=== PATIENT | male | born 1985 | race Caucasian/White ===

== ENCOUNTER → 2020-12-04 | Outpatient (CLI) | payer OTHER | LOC: M LABSMTC 12:10 | PROVIDERS: ATTEND Anesthesiology | DX: Z01.812 Encounter for preprocedural laboratory examination (principal); Z20.822 Contact with and (suspected) exposure to COVID-19 ==

== ENCOUNTER 2020-12-09 08:29 | Day surgery (SDC) | payer OTHER, SELFPAY ==
[~2020-12-09] VITALS: Ht 190.5 cm; Wt 92.4 kg
[~2020-12-09 08:29] MED LIST: LIDOCAINE 1% MDV 20ML VIAL SQ PRN; LR 1,000 ML IV ONE; ceFAZolin SOD 2 GM in IV 1 EA IV ONE
--- OUTSIDE RECORDS SUMMARY | 2020-12-09 08:50 | CCD ---
Author Author [facility] Organization [facility] Address Unknown Phone Unavailable Care Team Providers Care 911 Operator Name Role Phone Jesse Russell Unavailable PROBLEMS Type Condition ICD9-CM Code NSS48-IV Code Onset Dates Condition S tatus SNOMED Code Notes Problem Renal calculus N20.0 Active 33054140 ALLERGIES No Known Allergies ENCOUNTERS from 1987 to 2020-11-23 Encounter Location Date Provider Diagnosis [facility] Urology [address] [place] [address] [place] [address] Oct Jesse Russell Renal calculus N20.0 IMMUNIZATIONS No Information SOCIAL HISTORY Tobacco Use: Social History Observation Description Date Details (start date - stop date) Never Smoker Sex Assigned At : Social History Observation Description Sex Assigned At Unknown Language: Question Answer Notes Languages spoken: Icelandic Christianity: Question Answer Notes Christianity No samaritan beliefs that would impact health care. Alcohol Screening: Question Answer Notes Did you have a drink containing alcohol in the past year? Ye s Points 1 Interpretation Negative How many drinks did you have on a typica l day when you were drinking in the past year? 1 or 2 (0 points) How often did you have a drink containing alcohol in t he past year? Monthly or less (1 point) Tobacco Use: Question Answer Notes Are you a: never smoker REASON FOR REFERRAL No Information VITAL SIGNS Weight 202.2 lbs Oct, Height 75 in Oct, BMI 25.27 kg/m2 Oct, Heart Rate 76 /min Oct, Respiratory Rate 18 /min Oct, Oximetry 95 Oct, Blood pressure systolic 122 mm Hg Oct, Blood pressure diastolic 68 mm Hg Oct, MEDICATIONS Medication SIG (Take, Route, Frequency, Duration) Notes Start Da te End Date Status Tamsulosin HCl 0.4 MG 1 capsule Orally Once a day for 30 day(s) Active Pravastatin Sodium 20 MG 1 tablet Orally Once a day for 30 day(s) Active PROCEDURES No Information RESULTS No Results REASON FOR VISIT CALCULUS OF KIDNEY MEDICAL (GENERAL) HISTORY Type Description Date Medical History mixed hyperlipidemia Medical History kidney stones Surgical History left elbow sx Goals Section No Information Health Concerns No Information MEDICAL EQUIPMENT No Information MENTAL STATUS No Information FUNCTIONAL STATUS No Information ASSESSMENTS Encounter Date Diagnosis Assessment Notes Treatment Notes Treatm ent Clinical Notes Oct, Renal calculus (ICD-10 - N20.0) Patient has a 6 mm left renal calculus. He will be scheduled for ESWL treatment. Possible complications were discussed with the patient as well as alternative treatments. PLAN OF TREATMENT Treatment Notes Assessment Notes Clinical Notes Renal calculus Patient has a 6 mm l eft renal calculus. He will be scheduled for ESWL treatment. Possible complications were discussed with the patient as well as alternative treatments. Treatment Notes Test Name Order Date CBC - Complete Blood Count 2020-11-23 URINE CULTURE 2020-11-23 Basic Metabolic Profile (BMP) 2020-11-23 Future Test Test Name Order Date ADM ABDOMEN 1 VIEW (KUB) [id number] Next Appt Details 4 Weeks Reason:KUB for status post ESWL Follow Up:4 WeeksKUB for status post ESWL Insurance Providers Payer Name Payer Address Payer Phone Insured Name Patient Relati onship to Insured Coverage Start Date Coverage End Date [facility] [address] [address] [facility] [phone] RICCARDO CASTELLANOS self
--- OUTSIDE RECORDS SUMMARY | 2020-12-09 08:50 | CCD | Continuity of Care Document ---
Author Author [facility] Organization [facility] Address [address] [place] [address] Phone Support Name Relationship Address Phone Dayna Gordon PRS [address] [place] [address] Allergies, Adverse Reactions, Alerts Allergen Type Severity Reaction Last Updated Verified Status SEASONAL ALLERGIES Allergy Moderate sneezing, runny nose October 15, 2020 12:57pm No Active Medications Medication Status Dose Units Route Directions Qty Days Start Date End Date Instructions Pravastatin Discontinued 20 MG PO daily October 17, 2019 10:25am April 02, 2020 9:14am Pravastatin Discontinued 20 MG PO daily April 02, 2020 9:13am April 02, 2020 1:14pm Pravastatin Discontinued 20 MG PO daily April 02, 2020 1:14pm May 31, 2020 7:22am Naproxen (Naprosyn) 500 MG tablet Di scontinued 500 MG PO 2 Times Per Day 60 January 05, 2015 9:44am April 26, 2017 2:50pm Naproxen Discontinued 500 MG PO 2 Times Per Day 60 April 26, 2017 2:49pm April 26, 2017 2:49pm Naproxen Discontinued 500 MG PO 2 Times Per Day 60 April 26, 2017 2:49pm August 01, 2018 3:51pm Pravastatin Discontinued August 01, 2018 3:50pm May 7:23am Meloxicam Discontinued 15 MG PO Once Per Day August 22, 2018 1:pm March 26, 2019 7:47am Meloxicam Discontinued 15 MG PO Once Per Day August 22, 2018 1:pm October 17, 2019 10:08am Cyclobenzaprine Discontinued 5 MG PO 2 Times Per Day 14 09August 26, 2018 12:24pm March 26, 2019 7:48am Cyclobenzaprine Discontinued 5 MG PO 2 Times Per Day 20 August 26, 2018 12:24pm October 17, 2019 10:07am Pravastatin Discontinued 20 MG PO daily 30 June 18, 2019 7:15am October 17, 2019 10:25am Pravastatin Active 20 MG PO daily 90 90 May 31, 2020 7:22am Tamsulosin Active 0.4 MG PO Q24H 14 October 15, 2020 2:53pm Problems Active Problems Medical Problem Onset Date Status Calculus of kidney Act angela Mixed hyperlipidemia A ctive Left flank pain Active Inactive/Resolved Problems Medical Problem Onset Date Status Chronic neck pain Reso lved Procedures Procedure Date Performed Status Xray Abdomen 1 View (KUB) September 272019 1:31pm completed Relevant Diagnostic Tests and/or Laboratory Data Laboratory Results Test Date/Time Result Interpretation Reference Range Result Comment Performing Site Blood Urea Nitrogen April 02, 2020 8:42am 18 mg/dL 08-18 [facility], [address] [place] [address]017 Blood Urea Nitrogen October 29 12:45pm 15 mg/dL 08-18 [facility], [address] [place] [address] 40854 Sodium Level April 02, 2020 8:42am 143 mmol/L 132-146 [facility], [address] [place] [address]7574 Sodium Level October 29, 2019 12:45pm 140 mmol/L 132-146 [facility], [address] [place] [address] 76477 Potassium Level April 02, 2020 8:42am 4.1 mmol/L 3.5-5.5 [facility], [address] [place] [address] 76375 Potassium Level October 29, 2019 12:45pm 4.0 mmol/L 3.5-5.5 [facility], [address] [place] [address] 52863 Chloride Level April 02, 2020 8:42am 108 mmol/l 99-109 [facility], [address] [place] [address] 25425 Chloride Level October 29, 2019 12:45pm 107 mmol/l 99-109 [facility], [address] [place] [address] 28497 Carbon Dioxide Level April 02, 2020 8:42am 29 mmol/l 20-31 [facility], [address] [place] [address] 14889 Carbon Dioxide Level October 29 12:45pm 27 mmol/l -31 [facility], [address] [place] [address] 38227 Anion Gap April 02, 2020 8:42am 10 mmol/l 8-16 [facility], [address] [place] [address] 20239 Anion Gap October 29, 2019 12:45pm 10 mmol/l 8-16 [facility], [address] [place] [address] 55299 Glucose Level April 02, 2020 8:42am 91 mg/dL 74-106 [facility], [address] [place] [address] 89955 Glucose Level October 29, 2019 12:45pm 92 mg/dL 74-106 [facility], [address] [place] [address] 44896 Creatinine April 02, 2020 8:42am 1.0 mg/dL 0.5-1.1 [facility], [address] [place] [address] Creatinine October 29, 2019 12:45pm 1.0 mg/dL 0.5-1.1 [facility], [address] [place] [address] Glomerular Filtration Rate Calc April 02, 2020 8:42am Greater than 60 ml/min ABOVE 60 [facility], [address] [place] [address] 24644 Glomerular Filtration Rate Calc Dece 2018 12:45pm Greater than 60 ml/min ABOVE 60 [facility], [address] [place] [address] 46463 Alanine Aminotransferase (ALT/SGPT) April 02, 2020 8:42am 31 U/L 10-49 [facility], [address] [place] [address] Alanine Aminotransferase (ALT/SGPT) October 29, 2019 12:45pm 66 U/L 10-49 [facility], [address] [place] [address] 32499 Aspartate Amino Transf (AST/SGOT) Ma y 2019 8:42am 16 U/L 0-33 [facility], [address] [place] [address] 57113 Aspartate Amino Transf (AST/SGOT) De cember 2018 12:45pm 29 U/L 0-33 [facility], [address] [place] [address] 23289 Alkaline Phosphatase April 02, 2020 8:42am 98 U/L 45-129 [facility], [address] [place] [address] 61773 Alkaline Phosphatase October 29 12:45pm 98 U/L 45-129 [facility], [address] [place] [address] 58835 Calcium Level April 02, 2020 8:42am 8.9 mg/dL 8.5-10.1 [facility], [address] [place] [address] 10560 Calcium Level October 29, 2019 12:45pm 9.1 mg/dL 8.5-10.1 [facility], [address] [place] [address] 63617 Total Bilirubin April 02, 2020 8:42am 0.5 mg/dL 0.3-1.2 [facility], [address] [place] [address] 51399 Total Bilirubin October 29, 2019 12:45pm 0.6 mg/dL 0.3-1.2 [facility], [address] [place] [address] 78620 Albumin April 02, 2020 8:42am 4.2 g/dL 3.2-4.8 [facility], [address] [place] [address] 00901 Albumin October 29, 2019 12:45pm 4.2 g/dL 3.2-4.8 [facility], [address] [place] [address] 49304 Serum Total Protein April 02, 2020 8:42am 7.3 g/dL 5.7-8.2 [facility], [address] [place] [address] 93768 Serum Total Protein October 29 12:45pm 7.4 g/dL 5.7-8.2 [facility], [address] [place] [address] 75925 Triglycerides Level April 02, 2020 8:42am 68 mg/dL 0-150 [facility], [address] [place] [address] 40445 Triglycerides Level October 29 12:45pm 114 mg/dL 0-150 [facility], [address] [place] [address] 31678 Cholesterol Level April 02, 2020 8:42am 166 mg/dL 120-200 [facility], [address] [place] [address] 71709 Cholesterol Level October 29, 2019 12:45pm 269 mg/dL 120-200 [facility], [address] [place] [address] 71746 HDL Cholesterol April 02, 2020 8:42am 50 mg/dL HDL Less than 40 mg/dL: Major risk for CHDHDL Greater than 59 mg/dL: Low risk for CHD [facility], [address] [place] [address] 39535 HDL Cholesterol October 29, 2019 12:45pm 54 mg/dL HDL Less than 40 mg/dL: Major risk for CHDHDL Greater than 59 mg/dL: Low risk for CHD [facility], [address] [place] [address] 58061 LDL Cholesterol, Calculated April 02, 2020 8:42am 103 mg/dL 0-100 [facility], [address] [facility] [address] LDL Cholesterol, Calculated October 29, 2019 12:45pm 193 mg/dL 0-100 [facility], [address] [place], [place] [address] Diagnostic Imaging Reports Report Dictated Date/Time Dictated By Status Radiology Report October 15, 2020 2:10p rob Lozada DO completed [facility] [address] [place] [id number] [phone] NAME SEX PT STATUS ACCOUNT NUMBER RICCARDO CASTELLANOS REG REF [id number] ORDERING PHYSICIAN LOCATION MEDICAL RECORD NO. Dayna Gordon RAD [id number] ATTENDING PHYSICIAN DATE OF DATE OF EXAM/TIME Dayna Gordon NP 1985 10/15/201330 TYPE / EXAM Xray Abdomen 1 View (KUB) REASON FOR EXAM Left flank pain CLINICAL HISTORY: Left flank pain TECHNIQUE: AP erect and supine views of the abdomen were obtained. COMPARISON: None available.. FINDINGS: There are no dilated loops of bowel to suggest an obstruction. There is scattered stool throughout the colon and rectum. 6 mm oval radiopaque density projects over the left renal shadow. IMPRESSION: Possible 6 mm left renal calculus. Further evaluation with CT or ultrasound can be obtained if clinically warranted. Reported By Erlin Lozada DO on 10/15/201409 Signed By Erlin Lozada DO on 10/15/201411 Date Time CC: Erlin Lozada DO; Dayna Gordon Techn: SALLIE Trans Dt/Tm: Trans by: DT Prt Dt/Tm: [id number]: Total DLP = 0.00 mGy-cm Fluoroscopy Time (in secs): Health Concerns Health Concerns may be documented in an alternate section. Advance Directives Advance Directive Response Recorded Date/Time Advanced Directive No Sergio velazco 2019 9:30am Does Patient have a DNR? No December 08, 2014 11:31am Healthcare Proxy No Desmond estrada 2014 9:00am Living Will No November 262014 11:31am Chief Complaint and Reason for Visit Chief Complaint Z00.00 E78.2 Hyperlipidemia Hyperlipidemia Kidney Stone Follow-up N20.0 Reason for Visit Mixed hyperlipidemi a Left flank pain Mixed hyperlipidemia Encounters Encounter Location(s) Ar rival/Admit Date Discharge/Depart Date Provider(s) Registered Referred [facility] October 29, 2019 12:40pm Dayna Gordon Registered Referred [facility] April 02, 2020 8:39am Roseanne Gordon Departed Physician/Provider Office Visit [facility] April 02, 2020 8:55am April 02, 2020 9:19am Dayna Gordon Departed Physician/Provider Office Visit [facility] October 15, 2020 12:51pm October 15, 2020 1:17pm Dayna Gordon Registered Referred [facility] October 15, 2020 1:20pm Dayna Gordon Departed Physician/Provider Office Visit [facility] October 28, 2020 1:38pm October 28, 2020 2:00pm Dayna clay Registered Referred [facility] October 28, 2020 1:58pm Dayna Gordon Recent Diagnosis Onset Date Mixed hyperlipidemia Left flank pain Mixed hyperlipidemia Assessments Diagnosis Onset Date Res olution Status Mixed hyperlipidemia acute Left flank pain acute Mixed hyperlipidemia acute Family History Relationship Condition A ge at Onset Recorded Date/Time Not Specified Hypertension Unknown Not Specified Diabetes mellitus Unknown Not Specified Diabetes mellitus Unknown Functional Status No Functional Status information available Goals Goals may be documented in an alternate section. Immunizations No Immunization Information Available Mental Status No Mental Status Information Available Medical Equipment No Medical Equipment Information available Insurance Providers Guarantor RICCARDO CASTELLANOS Address [address] [address] Contact Info. Home Phone: Payer Policy Id Coverage Id Subscriber's Name Subscriber Id Effective Date Expiration Date [facility] [id number] RICCARDO CASTELLANOS [id number] Self Pay Self N/A [facility] [id number] RICCARDO CASTELLANOS [id number] Social History Smoking Status Status Date of Observation Never smoker October 17, 2019 10: 04am Observation Status Observation Response Mejia e of Response Smoking Status Never smoker October 17, 2019 10:04am Assigned Sex Male Vital Signs Vital Reading Result Ref erence Range Collection Date/Time Height 76.5 [in_i] April 02, 2020 9:56am Weight 210.00 [lb_av] April 02, 2020 9:56am Body Temperature 97.9 [degF] 97.6-99.5 April 02, 2020 9:56am Heart Rate 80 /min 60-100 April 02, 2020 9:56am Respiratory rate 18 /min -April 02, 2020 9:56am Oxygen saturation by Pulse oximetry 96 % 95- 100 April 02, 2020 9:56am BP Systolic 122 mm[Hg] April 02, 2020 9:56am BP Diastolic 78 mm[Hg] April 02, 2020 9:56am BMI (Body Mass Index) 25.2 kg/m2 April 02, 2020 9:56am Height 76 [in_i] October 15, 2020 1:05pm Weight 200.00 [lb_av] October 15, 2020 1:05pm Body Temperature 98.3 [degF] 97.6-99.5 October 15, 2020 1:05pm Heart Rate 77 /min 60-100 October 15, 2020 1:05pm Respiratory rate 18 /min -October 15, 2020 1:05pm Oxygen saturation by Pulse oximetry 96 % 95- 100 October 15, 2020 1:05pm BP Systolic 100 mm[Hg] October 15, 2020 1:05pm BP Diastolic 78 mm[Hg] October 15, 2020 1:05pm BMI (Body Mass Index) 24.3 kg/m2 October 15, 2020 1:05pm Weight 200.00 [lb_av] October 28, 2020 1:46pm Body Temperature 97.9 [degF] 97.6-99.5 October 28, 2020 1:46pm Heart Rate 90 /min 60-100 October 28, 2020 1:46pm Respiratory rate 18 /min -October 28, 2020 1:46pm Oxygen saturation by Pulse oximetry 96 % 95- 100 October 28, 2020 1:46pm BP Systolic 120 mm[Hg] October 28, 2020 1:46pm BP Diastolic 60 mm[Hg] October 28, 2020 1:46pm
--- OUTSIDE RECORDS SUMMARY | 2020-12-09 08:50 | CCD ---
Author Author [id number] [facility] [employer] [facility] [facility] Organization [email or web address] [facility] Address Unknown Phone Unavailable Care Team Providers Care Assistant Food Service Director Name Role Phone RecoKatie nguyen Unavailable PROBLEMS Type Condition ICD9-CM Code [id number] Code Onset Dates Condition S tatus SNOMED Code Notes Problem Renal calculus N20.0 Active [id number] ALLERGIES No Known Allergies ENCOUNTERS from 1987 to 2020-11-24 Encounter Location Date Provider Diagnosis [facility] Urology [address] [place] [address] Oct Katie Recore Renal calculus N20.0 IMMUNIZATIONS No Information SOCIAL HISTORY Tobacco Use: Social History Observation Description Date Details (start date - stop date) Never Smoker Sex Assigned At : Social History Observation Description Sex Assigned At Unknown Language: Question Answer Notes Languages spoken: Tamazight Mandaen: Question Answer Notes Mandaen No church beliefs that would impact health care. Alcohol [...] REASON FOR REFERRAL No Information VITAL SIGNS No information MEDICATIONS Medication SIG (Take, Route, Frequency, Duration) Notes Start Da te End Date Status Tamsulosin HCl 0.4 MG 1 capsule Orally Once a day for 30 day(s) Active Pravastatin Sodium 20 MG 1 tablet Orally Once a day for 30 day(s) Active PROCEDURES No Information RESULTS No Results REASON FOR VISIT KUB MEDICAL (GENERAL) HISTORY Type Description Date Medical History mixed hyperlipidemia Medical History kidney stones Surgical History left elbow sx Goals Section No Information Health Concerns No Information MEDICAL EQUIPMENT No Information MENTAL STATUS No Information FUNCTIONAL STATUS No Information ASSESSMENTS Encounter Date Diagnosis Assessment Notes Treatment Notes Treatm ent Clinical Notes Oct, Renal calculus (ICD-10 - N20.0) PLAN OF TREATMENT Treatment Notes Test Name Order Date PLZ ABDOMEN 1 VIEW (KUB) 2020-11-24 Next Appt Details Provider Name:Sandoval Belcher, 2021-01-04 09:00:00 AM, [address], [place], [address], Insurance Providers Payer Name Payer Address Payer Phone Insured Name Patient Relati onship to Insured Coverage Start Date Coverage End Date [facility] [address] [address] [facility] [phone] RICCARDO CASTELLANOS self
--- OUTSIDE RECORDS SUMMARY | 2020-12-09 08:51 | CCD ---
Author Author [facility] Organization [facility] Address Unknown Phone Unavailable Care Team Providers Care Licensing Services Clerk Name Role Phone Diogenes Lemus MD Unavailable Unavailable Diogenes Lemus MD Unavailable Unavailable Diogenes Lemus MD Unavailable Unavailable Diogenes Lemus MD Unavailable Unavailable Diogenes Lemus MD Unavailable Unavailable Diogenes Lemus MD Unavailable Unavailable Diogenes Lemus MD Unavailable Unavailable Diogenes Lemus MD Unavailable Unavailable Diogenes Lemus MD Unavailable Unavailable Diogenes Lemus MD Unavailable Unavailable Diogenes Lemus MD Unavailable Unavailable Diogenes Lemus MD Unavailable Unavailable Diogenes Lemus MD Unavailable Unavailable Diogenes Lemus MD Unavailable Unavailable Diogenes Lemus MD Unavailable Unavailable Diogenes Lemus MD Unavailable Unavailable Diogenes Lemus MD Unavailable Unavailable Diogenes Lemus MD Unavailable Unavailable Diogenes Lemus MD Unavailable Unavailable Diogenes Lemus MD Unavailable Unavailable Diogenes Lemus MD Unavailable Unavailable Diogenes Lemus MD Unavailable Unavailable Diogenes Lemus MD Unavailable Unavailable Diogenes Lemus MD Unavailable Unavailable Diogenes Lemus MD Unavailable Unavailable Diogenes Lemus MD Unavailable Unavailable Diogenes Lemus MD Unavailable Unavailable Diogenes Lemus MD Unavailable Unavailable Diogenes Lemus MD Unavailable Unavailable Diogenes Lemus MD Unavailable Unavailable Diogenes Lemus MD Unavailable Unavailable Diogenes Lemus MD Unavailable Unavailable Diogenes Lemus MD Unavailable Unavailable Diogenes Lemus MD Unavailable Unavailable Diogenes Lemus MD Unavailable Unavailable Diogenes Lemus MD Unavailable Unavailable Diogenes Lemus MD Unavailable Unavailable Diogenes Lemus MD Unavailable Unavailable Diogenes Lemus MD Unavailable Unavailable Diogenes Lemus MD Unavailable Unavailable Diogenes Lemus MD Unavailable Unavailable Diogenes Lemus MD Unavailable Unavailable Diogenes Lemus MD Unavailable Unavailable Diogenes Lemus MD Unavailable Unavailable Diogenes Lemus MD Unavailable Unavailable Diogenes Lemus MD Unavailable Unavailable Diogenes Lemus MD Unavailable Unavailable Diogenes Lemus MD Unavailable Unavailable Diogenes Lemus MD Unavailable Unavailable Diogenes Lemus MD Unavailable Unavailable Diogenes Lemus MD Unavailable Unavailable Diogenes Lemus MD Unavailable Unavailable Diogenes Lemus MD Unavailable Unavailable Diogenes Lemus MD Unavailable Unavailable Diogenes Lemus MD Unavailable Unavailable Diogenes Lemus MD Unavailable Unavailable Diogenes Lemus MD Unavailable Unavailable Diogenes Lemus MD Unavailable Unavailable Diogenes Lemus MD Unavailable Unavailable Diogenes Lemus MD Unavailable Unavailable Diogenes Lemus MD Unavailable Unavailable Diogenes Lemus MD Unavailable Unavailable Diogenes Lemus MD Unavailable Unavailable Diogenes Lemus MD Unavailable Unavailable Diogenes Lemus MD Unavailable Unavailable Diogenes Lemus MD Unavailable Unavailable Diogenes Lemus MD Unavailable Unavailable Diogenes Lemus MD Unavailable Unavailable Diogenes Lemus MD Unavailable Unavailable Diogenes Lemus MD Unavailable Unavailable Diogenes Lemus MD Unavailable Unavailable Diogenes Lemus MD Unavailable Unavailable Diogenes Lemus MD Unavailable Unavailable Diogenes Lemus MD Unavailable Unavailable Diogenes Lemus MD Unavailable Unavailable Diogenes Lemus MD Unavailable Unavailable Diogenes Lemus MD Unavailable Unavailable Diogenes Lemus MD Unavailable Unavailable Diogenes Lemus MD Unavailable Unavailable Diogenes Lemus MD Unavailable Unavailable Diogenes Lemus MD Unavailable Unavailable Diogenes Lemus MD Unavailable Unavailable Diogenes Lemus MD Unavailable Unavailable Layton Russell MD Unavailable Unavailable Rohit GAO MD Unavailable Unavailable Rohit GAO MD Unavailable Unavailable Rohit GAO MD Unavailable Unavailable Rohit GAO MD Unavailable Unavailable Rohit GAO MD Unavailable Unavailable Rohit GAO MD Unavailable Unavailable Rohit GAO MD Unavailable Unavailable Rohit GAO MD Unavailable Unavailable Rohit GAO MD Unavailable Unavailable Rohit GAO MD Unavailable Unavailable Rohit GAO MD Unavailable Unavailable Rohit GAO MD Unavailable Unavailable Rohit GAO MD Unavailable Unavailable Rohit GAO MD Unavailable Unavailable Rohit GAO MD Unavailable Unavailable Rohit GAO MD Unavailable Unavailable Rohit GAO MD Unavailable Unavailable Rohit GAO MD Unavailable Unavailable Rohit GAO MD Unavailable Unavailable Rohit GAO MD Unavailable Unavailable Rohit GAO MD Unavailable Unavailable Rohit GAO MD Unavailable Unavailable GAO, Rohit VOGEL MD Unavailable Unavailable GAO, T LELA ZENG Unavailable Unavailable GAO, Rohit VOGEL MD Unavailable Unavailable GAO, Rohit VOGEL MD Unavailable Unavailable GAO, Rohit VOGEL MD Unavailable Unavailable GAO, Rohit VOGEL MD Unavailable Unavailable GAO, Rohit VOGEL MD Unavailable Unavailable GAO, Rohit VOGEL MD Unavailable Unavailable GAO, Rohit VOGEL MD Unavailable Unavailable GAO, Rohit VOGEL MD Unavailable Unavailable GAO, Rohit VOGEL MD Unavailable Unavailable GAO, Rohit VOGEL MD Unavailable Unavailable GAO, Rohit VOGEL MD Unavailable Unavailable GAO, Rohit VOGEL MD Unavailable Unavailable GAO, Rohit VOGEL MD Unavailable Unavailable GAO, T LELA ZENG Unavailable Unavailable GAO, T LELA ZENG Unavailable Unavailable GAO, T LELA ZENG Unavailable Unavailable GAO, Rohit VOGEL MD Unavailable Unavailable GAO, Rohit VOGEL MD Unavailable Unavailable GAO, Rohit VOGEL MD Unavailable Unavailable GAO, Rohit VOGEL MD Unavailable Unavailable GAO, Rohit VOGEL MD Unavailable Unavailable GAO, Rohit VOGEL MD Unavailable Unavailable GAO, Rohit VOGEL MD Unavailable Unavailable GAO, Rohit VOGEL MD Unavailable Unavailable GAO, Rohit VOGEL MD Unavailable Unavailable GAO, Rohit VOGEL MD Unavailable Unavailable GAO, Rohit VOGEL MD Unavailable Unavailable GAO, Rohit VOGEL MD Unavailable Unavailable GAO, Rohit VOGEL MD Unavailable Unavailable GAO, Rohit VOGEL MD Unavailable Unavailable GAO, Rohit VOGEL MD Unavailable Unavailable GAO, Rohit VOGEL MD Unavailable Unavailable GAO, Rohit VOGEL MD Unavailable Unavailable GAO, Rohit VOGEL MD Unavailable Unavailable GAO, Rohit VOGEL MD Unavailable Unavailable GAO, Rohit VOGEL MD Unavailable Unavailable GAO, Rohit VOGEL MD Unavailable Unavailable GAO, Rohit VOGEL MD Unavailable Unavailable GAO, Rohit VOGEL MD Unavailable Unavailable GAO, Rohit VOGEL MD Unavailable Unavailable GAO, Rohit VOGEL MD Unavailable Unavailable GAO, Rohit VOGEL MD Unavailable Unavailable GAO, Rohit VOGEL MD Unavailable Unavailable GAO, Rohit VOGEL MD Unavailable Unavailable GAO, Rohit VOGEL MD Unavailable Unavailable GAO, Rohit VOGEL MD Unavailable Unavailable GAO, Rohit VOGEL MD Unavailable Unavailable GAO, Rohit VOGEL MD Unavailable Unavailable GAO, Rohit VOGEL MD Unavailable Unavailable GAO, Rohit VOGEL MD Unavailable Unavailable GAO, Rohit VOGEL MD Unavailable Unavailable GAO, Rohit VOGEL MD Unavailable Unavailable GAO, Rohit VOGEL MD Unavailable Unavailable GAO, Rohit VOGEL MD Unavailable Unavailable GAO, Rohit VOGEL MD Unavailable Unavailable GAO, Rohit VOGEL MD Unavailable Unavailable GAO, Rohit VOGEL MD Unavailable Unavailable GAO, Rohit VOGEL MD Unavailable Unavailable GAO, Rohit VOGEL MD Unavailable Unavailable GAO, Rohit VOGEL MD Unavailable Unavailable GAO, Rohit VOGEL MD Unavailable Unavailable GAO, Rohit VOGEL MD Unavailable Unavailable GAO, Rohit VOGEL MD Unavailable Unavailable GAO, Rohit VOGEL MD Unavailable Unavailable GAO, Rohit VOGEL MD Unavailable Unavailable GAO, Rohit VOGEL MD Unavailable Unavailable GAO, Rohit VOGEL MD Unavailable Unavailable GAO, Rohit VOGEL MD Unavailable Unavailable GAO, Rohit VOGEL MD Unavailable Unavailable GAO, Rohit VOGEL MD Unavailable Unavailable GAO, Rohit VOGEL MD Unavailable Unavailable GAO, Rohit VOGEL MD Unavailable Unavailable AGO, Rohit VOGEL MD Unavailable Unavailable GAO, Rohit VOGEL MD Unavailable Unavailable GAO, Rohit VOGEL MD Unavailable Unavailable GAO, Rohit VOGEL MD Unavailable Unavailable GAO, Rohit VOGEL MD Unavailable Unavailable GAO, Rohit VOGEL MD Unavailable Unavailable GAO, Rohit VOGEL MD Unavailable Unavailable GAO, Rohit VOGEL MD Unavailable Unavailable GAO, Rohit VOGEL MD Unavailable Unavailable GAO, Rohit VOGEL MD Unavailable Unavailable GAO, Rohit VOGEL MD Unavailable Unavailable GAO, Rohit VOGEL MD Unavailable Unavailable GAO, Rohit VOGEL MD Unavailable Unavailable GAO, Rohit VOGEL MD Unavailable Unavailable GAO, Rohit VOEGL MD Unavailable Unavailable GAO, Rohit VOGEL MD Unavailable Unavailable GAO, oRhit VOGEL MD Unavailable Unavailable GAO, Rohit VOGEL MD Unavailable Unavailable Evan, A Dayna CORPORATE TRAVEL EXPERT Unavailable Unavailable Evan, A Dayna CORPORATE TRAVEL EXPERT Unavailable Unavailable Evan, A Dayna CORPORATE TRAVEL EXPERT Unavailable Unavailable Evan, A Dayna CORPORATE TRAVEL EXPERT Unavailable Unavailable Evan, A Dayna CORPORATE TRAVEL EXPERT Unavailable Unavailable Evan, A Dayna CORPORATE TRAVEL EXPERT Unavailable Unavailable Evan, A Dayna CORPORATE TRAVEL EXPERT Unavailable Unavailable Evan, A Dayna CORPORATE TRAVEL EXPERT Unavailable Unavailable Evan, A Dayna CORPORATE TRAVEL EXPERT Unavailable Unavailable Evan, A Dayna CORPORATE TRAVEL EXPERT Unavailable Unavailable Evan, A Dayna CORPORATE TRAVEL EXPERT Unavailable Unavailable Evan, A Dayna CORPORATE TRAVEL EXPERT Unavailable Unavailable Evan, A Dayna CORPORATE TRAVEL EXPERT Unavailable Unavailable Evan, A Dayna CORPORATE TRAVEL EXPERT Unavailable Unavailable Evan, A Dayna CORPORATE TRAVEL EXPERT Unavailable Unavailable Evan, A Dayna CORPORATE TRAVEL EXPERT Unavailable Unavailable Evan, A Dayna CORPORATE TRAVEL EXPERT Unavailable Unavailable Evan, A Dayna CORPORATE TRAVEL EXPERT Unavailable Unavailable Evan, A Dayna CORPORATE TRAVEL EXPERT Unavailable Unavailable Evan, A Dayna CORPORATE TRAVEL EXPERT Unavailable Unavailable Evan, A Dayna CORPORATE TRAVEL EXPERT Unavailable Unavailable Evan, A Dayna CORPORATE TRAVEL EXPERT Unavailable Unavailable Evan, A Dayna CORPORATE TRAVEL EXPERT Unavailable Unavailable Evan, A Dayna CORPORATE TRAVEL EXPERT Unavailable Unavailable Evan, A Dayna CORPORATE TRAVEL EXPERT Unavailable Unavailable Evan, A Dayna CORPORATE TRAVEL EXPERT Unavailable Unavailable Evan, A Dayna CORPORATE TRAVEL EXPERT Unavailable Unavailable Evan, A Dayna CORPORATE TRAVEL EXPERT Unavailable Unavailable Evan, A Dayna CORPORATE TRAVEL EXPERT Unavailable Unavailable Evan, A Dayna CORPORATE TRAVEL EXPERT Unavailable Unavailable Evan, A Dayna CORPORATE TRAVEL EXPERT Unavailable Unavailable Evan, A Dayna CORPORATE TRAVEL EXPERT Unavailable Unavailable Evan, A Dayna CORPORATE TRAVEL EXPERT Unavailable Unavailable Evan, A Dayna CORPORATE TRAVEL EXPERT Unavailable Unavailable Evan, A Dayna CORPORATE TRAVEL EXPERT Unavailable Unavailable Evan, A Dayna CORPORATE TRAVEL EXPERT Unavailable Unavailable Evan, A Dayna CORPORATE TRAVEL EXPERT Unavailable Unavailable Evan, A Dayna CORPORATE TRAVEL EXPERT Unavailable Unavailable Bermudez, Deven Unavailable Unavailable Re-disclosure Warning The records that you are about to access may contain information from federally-assisted alcohol or drug abuse programs. If such information is present, then the following federally mandated warning applies: This information has been disclosed to you from records protected by federal confidentiality rules (42 CFR part 2). The federal rules prohibit you from making any further disclosure of this information unless further disclosure is expressly permitted by the written consent of the person to whom it pertains or as otherwise permitted by 42 CFR part 2. A general authorization for the release of medical or other information is NOT sufficient for this purpose. The Federal rules restrict any use of the information to criminally investigate or prosecute any alcohol or drug abuse patient.The records that you are about to access may contain highly sensitive health information, the redisclosure of which is protected by Article 27-F of the [facility] Public [facility] law. If you continue you may have access to information: Regarding HIV / AIDS; Provided by facilities licensed or operated by the [facility] Office of Mental Health; or Provided by the [facility] Office for People With Developmental Disabilities. If such information is present, then the following [facility] mandated warning applies: This information has been disclosed to you from confidential records which are protected by state law. State law prohibits you from making any further disclosure of this information without the specific written consent of the person to whom it pertains, or as otherwise permitted by law. Any unauthorized further disclosure in violation of state law may result in a fine or fdc sentence or both. A general authorization for the release of medical or other information is NOT sufficient authorization for further disc losure. Allergies and Adverse Reactions Type Description Substance Reaction Status Data Source(s ) Environmental Allergy SEASONAL ALLERGIES SEASONAL ALLERGIES snee zing, [facility]ny nose [facility] No Known Drug Allergies No Known Drug Allergies [facility] Family History Family Member Name Family Member Gender Family Member Status Date o f Status Description Data Source(s) Unknown Condition [facility] Unknown Condition [facility] Unknown Condition [facility] Unknown Condition [facility] Encounters Encounter Providers Location Date Indications Data Source(s ) Outpatient Attender: Jesse Russell MD 12/03/2020 05:09:00 P M EST N20.0 [facility] N20.0 Unknown [address] [facility] [id number] 11/24/2020 12:00:00 AM EST eCW1 ([facility]) Outpatient [address] [facility] [id number] 11/18/2020 12:00:00 AM EST eCW1 ([facility]) Outpatient Attender: Dayna Gordon NP 10/28/2020 01:58:[address] [facility] N20.0 Outpatient Attender: Dayna Gordon NPReferrer: Dayna briseno NP 10/28/2020 01:38:00 PM EST - 10/28/2020 02:00:00 PM EST [facility] Outpatient Attender: Dayna Gordon NP 10/15/2020 01:20:[address] [facility] Outpatient Attender: Dayna Gordon NPReferrer: Dayna briseno NP 10/15/2020 12:51:00 PM EST - 10/15/2020 01:17:00 PM EST [facility] Outpatient Attender: Dayna Gordon NPReferrer: Dayna briseno NP 04/02/2020 09:55:00 AM EDT - 04/02/2020 10:19:00 AM EDT [facility] Outpatient Attender: Dayna Gordon NP 04/02/2020 09:39:[address] [facility] E78.2 Outpatient Attender: LELA GAO MDReferrer: Deven matias 12/12/2019 02:34:55 PM EST [facility] Outpatient Attender: LELA SKYeferrer: Jalyn brown MD 10/30/2019 12:36:00 PM EST [facility] Outpatient Attender: Dayna Gordon NP 10/29/2019 12:40:[address] [facility] Z00.00 Recurring Patient Attender: LELA MURRAY MDReferrer: Jalyn rosado MD 10/28/2019 12:55:54 PM EST [facility] Recurring Patient Attender: LELA GAO MDReferrer: Jalyn rosado MD 10/28/2019 12:53:15 PM EST [facility] Recurring Patient Attender: LELA GAO MDReferrer: Jalyn rosado MD 10/28/2019 12:50:59 PM EST [facility] Outpatient Attender: Dayna Gordon NP 10/17 09:57:00 AM EST - 10/17/2019 10:28:00 AM [facility] Immunizations Vaccine Date Status Description Data Source(s) INFLUENZA VIRUS VACCINE QUADRIVALENT 2019- (6 MOS AN D UP) 09/25/2020 12:00:00 AM EDT completed [facility] Medications Medication Brand Name Start Date Product Form Dose Route Admi nistrative Instructions Pharmacy Instructions Status Indications Reaction Description Data Source(s) Tamsulosin hydrochloride 0.4 MG Oral Capsule Tamsulosin 10/15/2020 02:53:17 PM EST 0.4 MG active [facility] Pravastatin Sodium 20 MG Oral Tablet Pravastatin 05/31/2020 08:22: 27 AM EDT 20 MG active [facility] Pravastatin Sodium 20 MG Oral Tablet Pravastatin 05/31/2020 08:22: 27 AM EDT 20 MG active [facility] Pravastatin Sodium 20 MG Oral Tablet Pravastatin 04/02/2020 02:14: 10 PM EDT 20 MG completed [facility] Pravastatin Sodium 20 MG Oral Tablet Pravastatin 04/02/2020 02:14: 10 PM EDT 20 MG completed [facility] Pravastatin Sodium 20 MG Oral Tablet Pravastatin 04/02/2020 10:13: 47 AM EDT 20 MG active [facility] Pravastatin Sodium 20 MG Oral Tablet Pravastatin 04/02/2020 10:13: 47 AM EDT 20 MG completed [facility] Pravastatin Sodium 20 MG Oral Tablet Pravastatin 04/02/2020 10:13: 47 AM EDT 20 MG completed [facility] Pravastatin Sodium 20 MG Oral Tablet Pravastatin 10/17/2019 10:25: 02 AM EST 20 MG completed [facility] Pravastatin Sodium 20 MG Oral Tablet Pravastatin 10/17/2019 10:25: 02 AM EST 20 MG completed [facility] Pravastatin Sodium 20 MG Oral Tablet Pravastatin 10/17/2019 10:25: 02 AM EST 20 MG completed [facility] Pravastatin Sodium 20 MG Oral Tablet Pravastatin 06/18/2019 08:15: 44 AM EDT 20 MG completed [facility] Pravastatin Sodium 20 MG Oral Tablet Pravastatin 06/18/2019 08:15: 44 AM EDT 20 MG completed [facility] Pravastatin Sodium 20 MG Oral Tablet Pravastatin 06/18/2019 08:15: 44 AM EDT 20 MG completed [facility] Cyclobenzaprine hydrochloride 5 MG Oral Tablet Cyclobenzapri il 08/26/2018 01:24:00 PM EDT [address] [facility] Cyclobenzaprine hydrochloride 5 MG Oral Tablet Cyclobenzapri il 08/26/2018 01:24:00 PM EDT [address] [facility] Cyclobenzaprine hydrochloride 5 MG Oral Tablet Cyclobenzapri il 08/26/2018 01:24:00 PM EDT [address] [facility] meloxicam 15 MG Oral Tablet Meloxicam Meloxicam 08/22/2018 02:28 :00 PM EDT 15 MG completed [facility] meloxicam 15 MG Oral Tablet Meloxicam Meloxicam 08/22/2018 02:28 :00 PM EDT 15 MG completed [facility] meloxicam 15 MG Oral Tablet Meloxicam Meloxicam 08/22/2018 02:28 :00 PM EDT 15 MG completed [facility] Insurance Providers Payer name Policy type / Coverage type Policy ID Covered republican ID Covered republican's relationship to pastrana Policy Pastrana Plan Information [facility] [id number] SP [id number] [facility] [id number] SP [id number] SELF PAY ONLY [id number] SP [id number] [employer] [place] [id number] SP [id number] UMR F [id number] SELF [id number] [employer] Other 0 Sponsored dependent Riccardo Castellanos 0 [employer] Other 0 Sponsored dependent Riccardo Castellanos 0 [employer] Other 0 Sponsored dependent Riccardo Castellanos 0 [employer] [place] Other 0 Sponsored dependent Riccardo Castellanos 0 [employer] [place] Other 0 Self 0 [employer] Other 0 Self 0 [employer] Other 0 Self 0 [employer] Other 0 Self 0 UMR F [id number] SELF [id number] Commercial F [id number] SELF [id number] Problems, Conditions, and Diagnoses Code Display Name Description Problem Type Effective Dates Data Source(s) N20.0 Renal calculus Renal calculus Problem 11/18/2020 12:00: 00 AM [facility] eCW1 ([facility]) Surgeries/Procedures Procedure Description Date Indications Data Source(s) Radiography of [id number] (procedure) 10/15 01:31:00 PM [facility] Results ID Date Data Source [id number] 12/04/2020 12:00:00 PM [facility] Name Value Range Interpretation Code Description Data Preeti rce(s) Supporting Document(s) SARS coronavirus 2 RNA Not Detected [facility] [place] This lab was ordered by [facility] and reported by [facility]. ID Date Data Source [id number] 12/04/2020 02:06:00 PM [facility] Name Value Range Interpretation Code Description Data Preeti rce(s) Supporting Document(s) Urine culture result No growth [facility] ID Date Data Source [id number] 12/03/2020 05:22:00 PM [facility] Name Value Range Interpretation Code Description Data Preeti rce(s) Supporting Document(s) Leukocytes [#/volume] in Blood by Automated count 7.5 10*3/uL 4.45-10 .71 [facility] Erythrocytes [#/volume] in Blood by Automated count 4.84 10*6/uL 4.3- 6.1 [facility] Hemoglobin [Moles/volume] in Blood 14.0 g/dL 13-[address] [facility] Hematocrit [Volume Fraction] of Blood by Automated count 43.3 % 4 2-[address] [facility] Erythrocyte mean corpuscular volume [Ent itic volume] in Cord blood by Automated count 89.5 fL 80-96 N [facility] Erythrocyte mean corpuscular hemoglobin [Entitic mass] by Automated count 28.9 pg 27-31 N [facility] Erythrocyte mean corpuscular hemoglobin concentration [Mass/volume] in Cord blood 32.3 g/dL 33-37 Below low normal [facility] Erythrocyte distribution width [Entitic volume] by Automated count 13 % 11-[address] [facility] Platelets [#/volume] in Blood by Automated count 227 10*3/uL 130-[address] [facility] Platelet mean volume [Entitic volume] in Blood 10.1 fL 9.1-13.[address] [facility] Neutrophils/100 leukocytes in Blood by Automated count 51.7 % 41- [address] [facility] Neutrophils [#/volume] in Blood by Automated count 3.9 U 1.7-7.[address] [facility] Lymphocytes/100 leukocytes in Blood by Automated count 31.6 % 14- [address] [facility] Lymphocytes [#/volume] in Blood by Automated count 2.4 U 0.6-4.[address] [facility] Monocytes/100 leukocytes in Blood by Automated count 9.9 % 4-[address] [facility] Monocytes [#/volume] in Blood by Automated count 0.7 U 0.2-1.[address] [facility] Eosinophils/100 leukocytes in Blood by Automated count 6.0 % 0-[address] [facility] Eosinophils [#/volume] in Blood by Automated count 0.5 U 0.0-0.[address] [facility] Basophils/100 leukocytes in Blood by Automated count 0.7 % 0.4-[address] [facility] Basophils [#/volume] in Blood by Automated count 0.1 U 0.0-0.[address] [facility] NUCLEATED RED BLOOD CELL 0 % [facility] NUCLEATED RED BLOOD CELL# 0 U [facility] Immature granulocytes [Presence] in Blood by Automated count 0-[address] [facility] Immature granulocytes [#/volume] in Blood by Automated count 0.0 U 0-0.[address] [facility] Manual Differential panel - Blood NO [facility] ID Date Data Source [id number] 12/03/2020 06:00:00 PM [facility] Name Value Range Interpretation Code Description Data Preeti rce(s) Supporting Document(s) Urea nitrogen [Mass/volume] in Serum or Plasma 25 mg/dL 9-[address] [facility] Sodium [Moles/volume] in Serum or Plasma 140 mmol/L 132-[address] [facility] Potassium [Moles/volume] in Serum or Plasma 3.6 mmol/L 3.5-5.5 [facility] Chloride [Moles/volume] in Serum or Plasma 104 mmol/L 99-[address] [facility] Carbon dioxide, total [Moles/volume] in Serum or Plasma 30 mmol/L 20 -31 [facility] Anion gap in Serum or Plasma 10 mmol/L 8-16 [facility] Glucose [Mass/volume] in Serum or Plasma 83 mg/dL 74-106 [facility] Creatinine 1.0 mg/dL 0.5-1.1 [facility] Glomerular filtration rate/1.73 sq M.pre dicted [Volume Rate/Area] in Serum or Plasma Greater Than [address] [facility] Calcium [Mass/volume] in Serum or Plasma 9.2 mg/dL 8.5-10.1 [facility] ID Date Data Source [id number] 11/08/2020 07:36:00 AM [facility] Name Value Range Interpretation Code Description Data Preeti rce(s) Supporting Document(s) SARS-CoV-2 RNA Sherman Ql KATHLEEN+probe [facility] This lab was ordered by [employer] and reported by [employer]. ID Date Data Source [id number] 10/29/2020 11:02:00 AM [facility] [address] [place] [address] [phone] NAME SEX PT STATUS ACCOUNT NUMBER RICCARDO CASTELLANOS REG REF [id number] ORDERING PHYSICIAN LOCATION MEDICAL RECORD NO. Dayna ROSALINA Gordon [facility] [id number] ATTENDING PHYSICIAN DATE OF DATE OF EXAM/TIME Dayna Gordon NP 1985 10/28/201407 TYPE / EXAM Xray Abdomen 1 View (KUB) REASON FOR EXAM Kidney stone recheck Clinical History/Indication for Exam: Kidney stone recheck Abdomen, Single View: Indications: Pain Comparison: None The bowel gas pattern is nonobstructive. No masses or dilated loops of bowel are present. Skeletal structures are intact. Questionable left abdominal calcification. Impression: Nonobstructive bowel gas pattern. Diffuse colonic fecal residual may represent clinical constipation. Question 3 mm calcification overlying the upper pole of the left kidney. REPORT SIGNATURE ON FILE 10/29/2020 (11:02 Eastern Time ) Signed by: Kranthi Conner M.D. Reported By Kranthi Conner MD on 10/29/201101 Signed By Kranthi Conner MD on 10/29/201101 Date Time CC: Dayna Gordon; Kranthi Conner MD Techn: CARRC Trans Dt/Tm: Trans by: DT Prt Dt/Tm: [id number]: Total DLP = 0.00 mGy-cm Fluoroscopy Time (in secs): Name Value Range Interpretation Code Description Data Preeti rce(s) Supporting Document(s) ID Date Data Source [id number] 10/28/2020 01:39:00 PM [facility] Patient Name: RICCARDO CASTELLANOS : 1985 Sex: M Pt Unit #: [id number] Location:[facility] Provider: Visit Date/Time: 10/28/20 Primary Insurance: R/[facility] Secondary Insurance: Self Pay Intake Vital Signs 10/28/20 13:46 Current Weight 200 lb Weight Measurement Method Standing Scale BP 120/60 Blood Pressure Location Rt brachial Position Sitting Respiration 18 Pulse 90 Pulse Source Pulse Oximeter Temp 97.9 F Temp Source Oral Pulse Oximetry (%) 96 Intake Visit Reasons: Kidney Stone Follow-up Brinell Tester Required: No Is patient in pain?: Yes (1-2 lower abdomen) Allergies SEASONAL ALLERGIES Allergy (Intermediate, Unverified 10/15/20 12:57) sneezing, runny nose Medications - Last Reconciled 10/28/20 by Dayna Gordon NP pravastatin 20 mg PO QDAY 90 days tamsulosin 0.4 mg PO Q24H Fall Risk Medications:: No High Risk Medications HIV Testing Offer - ages 13-64 HIV testing Offer: No Coronavirus Screening Screening Have you traveled outside of [facility] or [facility] in the last 14 days.: No Has patient experienced coronavirus symptoms: No PFSH Medical History (Updated 10/28/20 @ 13:56 by Dayna Gordon NP) Mixed hyperlipidemia Surgical History (Updated 05/20/19 @ 11:51 by [facility]) History of - surgery Family History Mother Hypertension Father Diabetes pat GM Diabetes Sister No problems noted. Sister No problems noted. Social History (Updated 10/28/20 @ 13:40 by Selena Garsia) Does the Patient have a Healthcare Proxy: No Does Patient have a DNR?: No Does Patient have a Living Will?: No well-balanced diet: rarely caffeine: No eating out: 4 or more times/week reads food labels: seldom or never Smoking Status: Never smoker HPI Kidney Stone - Follow-up * F/U kidney stone. Pain is now gone into lower abdomen as well. Doesnt think he has passed stone yet. Current symptoms: Reports abdominal pain Flank pain: Yes Timing: intermittent Severity: medium Fluid intake: water-lots Caffeine intake: coffee High protein diet: No Currently treated: No Review of Systems GI Reports abdominal pain Reports system reviewed and no additional complaints, except as documented and Reports as per HPI Exam Const General: cooperative, healthy appearing and comfortable Nutritional Appearance: average body habitus and well nourished Orientation: alert, awake and oriented x3 General: No CVA tenderness Assessment Plan Assessment Plan (1) Calculus of kidney: Code(s): N20.0 - Calculus of kidney Plan - Dayna Gordon NP: Repeat KUB. Continue tamsulosin. Consider referral to urology. He is agreeable to this plan. Orders: Orders: Xray Abdomen 1 View (KUB) Today Orders Other Medications: Refilled: tamsulosin 0.4 mg PO Q24H 14 caps 0RF <Electronically signed by Dayna Gordon NP> 10/28/20 1412 Name Value Range Interpretation Code Description Data Pretei rce(s) Supporting Document(s) ID Date Data Source [id number] 10/15/2020 02:10:00 PM [facility] [address] [place] [address] [phone] NAME SEX PT STATUS ACCOUNT NUMBER RICCARDO CASTELLANOS REG REF [id number] ORDERING PHYSICIAN LOCATION MEDICAL RECORD NO. Dayna ROSALINA Gordon RAD [id number] ATTENDING PHYSICIAN DATE OF DATE OF EXAM/TIME Dayna Gordon [employer] 1985 10/15/201330 TYPE / EXAM Xray Abdomen [...] CC: Erlin Lozada DO; Dayna Gordon Techn: FROSA Trans Dt/Tm: Trans by: DT Prt Dt/Tm: [id number]: Total DLP = 0.00 mGy-cm Fluoroscopy Time (in secs): Name Value Range Interpretation Code Description Data Preeti rce(s) Supporting Document(s) ID Date Data Source [id number] 10/15/2020 12:55:00 PM [facility] Patient Name: RICCARDO CASTELLANOS : 1985 Sex: M Pt Unit #: [id number] Location:[facility] Provider: Visit Date/Time: 10/15/20 Primary Insurance: [facility] Secondary Insurance: Self Pay Intake Vital Signs 10/15/20 13:05 Current Height 6 ft 4 in Current Weight 200 lb Weight Measurement Method Standing Scale BMI 24.3 BP 100/78 Blood Pressure Location Rt brachial Position Sitting Respiration 18 Pulse 77 Pulse Source Pulse Oximeter Temp 98.3 F Temp Source Oral Pulse Oximetry (%) 96 Intake Visit Reasons: Annual Physical Nurse Note: Annual physical. Back bothers only. Is patient in pain?: Yes (back-2 right now. While sitting in truck or laying down-6. ) Allergies SEASONAL ALLERGIES Allergy (Intermediate, Unverified 10/15/20 12:57) sneezing, runny nose Vision Wearing glasses?: No Additional details: both eyes Fall Risk History of falls: No Ambulatory Aid:: None Gait/Transferring:: Normal Medications:: No High Risk Medications PHQ-2/9 Over the last 2 weeks, how often have you been bothered by any of the following problems? 1. Little interest or pleasure in doing things: not at all 2. Feeling down, depressed, or hopeless: not at all Total score: 0 3. Trouble falling or staying asleep, or sleeping too much: not at all 4. Feeling tired or having little energy: not at all 5. Poor appetite or overeating: not at all 6. Feeling bad about yourself - or that you are a failure or have let yourself and your family down:not at all 7. Trouble concentrating on things, such as reading the newspaper or watching television: not at all 8. Moving or speaking so slowly that other people could have noticed? - Or the opposite - being so fidgety or restless that you have been moving around a lot more than usual: not at all 9. Thoughts that you would be better off or of hurting yourself in some way: not at all Total score: 0 Source: Developed by Drs. Perfecto Ryan, Yolette Mejia, Kevin Viera and colleagues, with an educational redd from [employer]. HIV Testing Offer - ages 13-64 HIV testing Offer: Yes Requirement for HIV testing offer been met?: Declines today. Pretest education received and acknowledged SBIRT Annual Questionnaire Are you currently in recovery for alcohol or substance use?: No How many times in the past year have you had 5 or more drinks in a day?: 1 or more How many times in the past year have you used a recreational drug or used a prescription medication for nonmedical reasons?: None Coronavirus Screening Screening Have you traveled outside of [facility] or [facility] in the last 14 days.: Yes Has patient experienced coronavirus symptoms: No PFSH Medical History (Updated 10/15/20 @ 13:44 by Dayna Gordon NP) Mixed hyperlipidemia Surgical History (Updated 05/20/19 @ 11:51 by [facility]) History of - surgery Family History Mother Hypertension Father Diabetes pat GM Diabetes Sister No problems noted. Sister No problems noted. Social History (Updated 10/15/20 @ 12:55 by Selena Garsia) Does the Patient have a Healthcare Proxy: No Does Patient have a DNR?: No Does Patient have a Living Will?: No well-balanced diet: rarely caffeine: No eating out: 4 or more times/week reads food labels: seldom or never Smoking Status: Never smoker HPI Adult Health Maintenance History of present illness Annual physical. Back only c/o's. Are you having any pain?: Yes (2-back) Pain scale (0-10): 2 Correction (vision test): no correction Type of chart: letter chart Left eye acuity: 20/20 Right eye acuity: 20/20 Dietary habits Has a well balanced diet: rarely Number of meals per day: 2 Eats out: 4 or more times/week Reads food labels: seldom or never Caffeine: No Number of caff einated beverages per day: 3 Exercise Exercise frequency: does not exercise Skin cancer risk assessment Protective factors: 1. Do you wear broad-spectrum sunscreen of SPF 15 or greater?: yes and 2. Do youwear hats or other shade- protective clothing?: yes Risk factors: 4. Do you do indoor tanning?: no, 5. Do you have fair skin?: yes, 6. Do you have blue,peña, or green eyes?: yes and 7. Do you have blond or red hair?: no Dental care Dental care: receives dental care Review of Systems Const Denies anorexia, Denies excessive sweating, Denies fatigue, Denies fever(s), Denies headache(s), Denies weight gain and Denies weight loss Eyes Denies blurry vision, Denies change in vision, Denies dry eyes, Denies irritation, Denies itchy eyesand Denies loss of vision ENT Denies abnormal hearing, Denies dysphagia, Denies dizziness, Denies headache(s), Denies lip swelling, Denies nasal congestion, Denies nasal discharge, Denies disequilibrium, Denies sinus pain,Denies sore throat and Denies throat swelling Card Denies chest pain, Denies pedal edema, Denies lightheadedness, Denies palpitations and Denies dyspnea Resp Denies cough, Denies excessive phlegm production, Denies pain on inspiration, Denies dyspnea and Denies wheezing GI Denies abdominal pain, Denies change in bowel habits, Denies dysphagia, Denies early satiety, Deniesheartburn, Denies diarrhea, Denies nausea and Denies vomiti ng Musc Reports back pain Skin/Breast Denies breast pain, Denies change in pigmentation, Denies lesions, Denies nail changes, Denies rash and Denies unusual bruising Neuro Denies abnormal hearing, Denies dizziness, Denies headache(s), Denies loss of vision, Denies memory loss, Denies paresthesias and Denies disequilibrium Psych Denies abnormal sleep pattern, Denies anxiety, Denies change in appetite, Denies depression, Denies irritability and Denies memory loss Endo Denies excessive sweating, Denies fatigue and Denies palpitations Aller/Immun Denies urticaria, Denies itchy eyes, Denies lip swelling, Denies seasonal rhinorrhea, Denies throat swelling and Denies wheezing Exam Const General: cooperative, healthy appearing, no acute distress, well developed and well groomed Nutritional Appearance: well nourished Orientation: alert, awake and oriented x3 [facility] Head: normocephalic and atraumatic Ears: hearing grossly normal bilaterally, external ears normal and TM's normal bilaterally General nose exam: no nasal discharge Face and sinus: normal facial exam and sinuses nontender Mouth: oral mucosae normal, lip normal, tongue normal, oropharynx normal and moist mucous membranes Throat: posterior oropharynx normal Eyes General: appearance normal, both eyes and all related structures Eyelids: eyelids normal Conjunctivae: conjunctivae normal Sclera: sclerae normal Pupils: PERRL EOM: EOM intact bilaterally Neck Neck: normal visual inspection, full ROM, no lymphadenopathy and supple Neck mass: No Resp Effort Inspection: normal respiratory effort Auscultation: clear to auscultation bilaterally Cardio Rate: regular rate Rhythm: regular rhythm Heart Sounds: S1 normal and S2 normal Pulses: normal peripheral pulses GI Palpation: soft, no hepatosplenomegaly and nontender Auscultation: normal bowel sounds General: No CVA tenderness Musc Cervical Spine: normal cervical lordosis and cervical ROM normal Thoracic/Lumbar Spine: thoracic and lumbar spine normal to inspection, thoraco-lumbar ROM normal andparaspinal muscle tenderness on the left in the mid lumbar Skin Lesions: no lesions Rashes: no rashes Neuro General: patient alert, patient awake, patient oriented x3, gait normal and moves all extremities Cognition: normal cognition Speech: speech normal Gait: normal gait Motor: muscle tone normal throughout and strength 5/5 throughout Sensory Exam: no sensory deficits noted Extrem General: normal to inspection, full ROM, capillary refill normal, no clubbing, cyanosis or edema andno muscle atrophy Psych Appearance: grossly normal and well kempt Mental Status: mental status grossly normal Speech and Movement: speech and movement normal Mood: congruent mood Affect: normal affect Attitude: cooperative Thought Process: normal Thought Content: normal Insight: insight good Judgment: judgment good Quality Reporting Depression/Bipolar (159/160/161/169/177) Total score: 0 Assessment Plan Assessment Plan (1) Encounter for annual health examination: Code(s): Z00.00 - Encounter for general adult medical examination without abnormal findings (2) Left flank pain: Status: Acute Code(s): R10.9 - Unspecified abdominal pain SNOMED Code(s): 760566981 Category: Medical Orders: Orders: Xray Abdomen 1 View (KUB) Today (3) Mixed hyperlipidemia: Status: Acute Code(s): E78.2 - Mixed hyperlipidemia SNOMED Code(s): 995225773 Category: Medical Additional Comments Additional Comments: Compliant with pravastatin. Good control. Healthy 35 year old male. Some left flank pain, xray ordered. Consider referral if needed. R.O. kidney vs muscular. <Electronically signed by Dayna Gordon NP> 10/15/20 1347 Name Value Range Interpretation Code Description Data Preeti rce(s) Supporting Document(s) ID Date Data Source [id number] 04/02/2020 09:56:[address] [facility] Patient Name: RICCARDO CASTELLANOS Roberta OB: 1985 Sex: M Pt Unit #: [id number] Location:[facility] Provider: Visit Date/Time: 04/02/20 Primary Insurance: [facility] Secondary Insurance: Self Pay Intake Vital Signs 04/02/20 09:56 Current Height 6 ft 4.5 in Current Weight 210 lb Weight Measurement Method Standing Scale BMI 25.2 BP 122/78 Blood Pressure Location Lt brachial Position Sitting Respiration 18 Pulse 80 Pulse Strength Normal Pulse Source Pulse Oximeter Temp 97.9 F Temp Source Oral Pulse Oximetry (%) 96 Oxygen Delivery Method room air Intake Visit Reasons: Hyperlipidemia Nurse Note: Pt presents today for follow up for hyperlipidemia. Pt continues to take pravastatin daily. Pt completed his labs prior to his appt today. They are currently pending. Brinell Tester Required: No Accompanied by: Self / Same as Patient Is patient in pain?: No Allergies No Known Drug Allergies Allergy (Unverified 10/17/19 10:07) Medications pravastatin 20 mg PO QDAY 90 days Fall Risk History of falls: No Ambulatory Aid:: None Gait/Transferring:: Normal Medications:: No H igh Risk Medications HIV Testing Offer - ages 13-64 Requirement for HIV testing offer been met?: Declines today. Pretest education received and acknowledged SBIRT Annual Questionnaire Are you currently in recovery for alcohol or substance use?: No Do you need a note to return Do you need a note to return to daycare/school/sports/work: No Coronavirus Screening Screening Have you traveled outside of [facility] or [facility] in the last 14 days.: No Has patient experienced coronavirus symptoms: No [facility] Surgical History (Updated 05/20/19 @ 11:51 by [facility]) History of - surgery Family History Mother Hypertension Father Diabetes pat GM Diabetes Sister No problems noted. Sister No problems noted. Social History (Updated 10/17/19 @ 10:04 by Selena Garsia) Does the Patient have a Healthcare Proxy: No Does Patient have a DNR?: No Does Patient have a Living Will?: No HPI Hyperlipid emia Type of Visit: follow-up elevated lipid profile denies headache(s), pedal edema, excessive sweating, flushing, chest pain, dyspnea, myalgias or other reports a low sodium diet. Medication compliance: is good Most Recent Cardiac Tests: No Data to Display Review of Systems Const Denies excessive sweating and Denies headache(s) ENT Denies headache(s) Card Denies chest pain, Denies pedal edema and Denies dyspnea Resp Denies dyspnea Musc Denies myalgias Neuro Denies headache(s) Endo Denies excessive sweating and Denies flushing Exam Const General: cooperative, healthy appearing and comfortable Nutritional Appearance: average body habitus and well nourished Orientation: alert, awake and oriented x3 Neck Carotids: normal carotid upstroke Resp Effort Inspection: normal respiratory effort Auscultation: clear to auscultation bilaterally Cardio Rate: regular rate Rhythm: regular rhythm Heart Sounds: S1 normal and S2 normal Extrem General: no edema Assessment Plan Assessment Plan (1) Mixed hyperlipidemia: Status: Acute Comment: Labs completed(pending). Doing well. No complaints. Compliant with medication, denies muscle aches/cramps. Discussed diet. He is active. Follow up in 6 months for annual PE. Code(s): E78.2 - Mixed hyperlipidemia SNOMED Code(s): 051787619 Category: Medical Orders Other Medications: Refilled: pravastatin 20 mg PO QDAY 90 days 90 tabs 3RF Follow Up: 6 Months (Annual PE) Electronically Signed By: <Electronically signed by Dayna Gordon NP> Date/Time Signed: 04/02/20 1017 Name Value Range Interpretation Code Description Data Preeti rce(s) Supporting Document(s) ID Date Data Source [id number] 04/02/2020 10:25:[address] [facility] Name Value Range Interpretation Code Description Data Preeti rce(s) Supporting Document(s) Urea nitrogen [Mass/volume] in Serum or Plasma 18 mg/dL 9-[address] [facility] Sodium [Moles/volume] in Serum or Plasma 143 mmol/L 132-[address] [facility] Potassium [Moles/volume] in Serum or Plasma 4.1 mmol/L 3.5-5.[address] [facility] Chloride [Moles/volume] in Serum or Plasma 108 mmol/L 99-[address] [facility] Carbon dioxide, total [Moles/volume] in Serum or Plasma 29 mmol/L 20 -[address] [facility] Anion gap in Serum or Plasma 10 mmol/L 8-16 N [facility] Glucose [Mass/volume] in Serum or Plasma 91 mg/dL 74-[address] [facility] Creatinine 1.0 mg/dL 0.5-1.1 [facility] Glomerular filtration rate/1.73 sq M.pre dicted [Volume Rate/Area] in Serum or Plasma Greater Than [address] [facility] Alanine aminotransferase [Enzymatic acti vity/volume] in Serum or Plasma by With P-5'-P 31 U/L 10-49 N [facility] ital Aspartate aminotransferase [Enzymatic ac tivity/volume] in Serum or Plasma by With P-5'-P 16 U/L 0-33 N [facility] pital Alkaline phosphatase [Enzymatic activity/volume] in Serum or Plasma 98 U/L 45-[address] [facility] Calcium [Mass/volume] in Serum or Plasma 8.9 mg/dL 8.5-10.1 [facility] Bilirubin.total [Mass/volume] in Serum or Plasma 0.5 mg/dL 0.3-1.2 [facility] Albumin [Mass/volume] in Serum or Plasma by Bromocresol purple (BCP) dye binding method 4.2 g/dL 3.2-4.8 [facility] ital Protein [Mass/volume] in Serum or Plasma 7.3 g/dL 5.7-8.2 [facility] ID Date Data Source [id number] 04/02/2020 10:25:[address] [facility] Name Value Range Interpretation Code Description Data Preeti rce(s) Supporting Document(s) Triglycerides 68 mg/dL 0-150 [facility] Cholesterol 166 mg/dL 120-200 [facility] HDL Cholesterol 50 mg/dL [facility] HDL Less than 40 mg/dL: Major risk for CHDHDL Greater than 59 mg/dL: Low risk for CHD LDL Cholesterol, Calc 103 mg/dL 0-[address] [facility] ID Date Data Source [id number] 12/12/2019 02:34:55 PM EST [facility] PC[facility]: Riccardo Schneider: 1985Provider: Janie Gao: 12/11/2019 Assessment Joint pain, hip (719.45) (M25.559) Left hip Plan Start: Meloxicam 15 MG Oral Tablet (Mobic); TAKE 1 TABLET DAILY WITH FOOD Rx By: Lela Gao; Dispense: 0 Days ; #:30 Tablet; Refill: 1;For: Joint pain, hip; YOUNG = N; Verified Transmission to [facility]; Last Updated By: Amada Kauffman; 12/11/2019 4:50:18 PMASSESSMENT: Left hip pain.Patient comes in for an 80 mg Depo-Medrol injection today. No complications were encountered. He will followup as needed. Signatures Electronically signed by : Alix Elliott, ; Dec 12 2019 9:38AM EST Electronically signed by : Lela Gao M.D.; Dec 12 2019 2:34PM EST (Author) Name Value Range Interpretation Code Description Data Preeti rce(s) Supporting Document(s) ID Date Data Source [id number] 10/29/2019 01:40:[address] [facility] Name Value Range Interpretation Code Description Data Preeti rce(s) Supporting Document(s) Urea nitrogen [Mass/volume] in Serum or Plasma 15 mg/dL 9-23 [facility] Sodium [Moles/volume] in Serum or Plasma 140 mmol/L 132-146 [facility] Potassium [Moles/volume] in Serum or Plasma 4.0 mmol/L 3.5-5.5 [facility] Chloride [Moles/volume] in Serum or Plasma 107 mmol/L 99-109 [facility] Carbon dioxide, total [Moles/volume] in Serum or Plasma 27 mmol/L 20 -31 [facility] Anion gap in Serum or Plasma 10 mmol/L 8-16 [facility] Glucose [Mass/volume] in Serum or Plasma 92 mg/dL 74-106 [facility] Creatinine 1.0 mg/dL 0.5-1.1 [facility] Glomerular filtration rate/1.73 sq M.pre dicted [Volume Rate/Area] in Serum or Plasma Greater Than [address] [facility] Alanine aminotransferase [Enzymatic acti vity/volume] in Serum or Plasma by With P-5'-P 66 U/L 10-49 Above high normal [facility] Aspartate aminotransferase [Enzymatic ac tivity/volume] in Serum or Plasma by With P-5'-P 29 U/L 0-33 N [facility] pital Alkaline phosphatase [Enzymatic activity/volume] in Serum or Plasma 98 U/L 45-[address] [facility] Calcium [Mass/volume] in Serum or Plasma 9.1 mg/dL 8.5-10.1 [facility] Bilirubin.total [Mass/volume] in Serum or Plasma 0.6 mg/dL 0.3-1.2 [facility] Albumin [Mass/volume] in Serum or Plasma by Bromocresol purple (BCP) dye binding method 4.2 g/dL 3.2-4.8 N [facility] ital Protein [Mass/volume] in Serum or Plasma 7.4 g/dL 5.7-8.[address] [facility] ID Date Data Source [id number] 10/29/2019 01:40:00 PM [facility] Name Value Range Interpretation Code Description Data Preeti rce(s) Supporting Document(s) Triglycerides 114 mg/dL 0-150 [facility] Cholesterol 269 mg/dL 120-200 Above high normal [facility] HDL Cholesterol 54 mg/dL [facility] HDL Less than 40 mg/dL: Major risk for CHDHDL Greater than 59 mg/dL: Low risk for CHD LDL Cholesterol, Calc 193 mg/dL 0-[address] [facility] ID Date Data Source [id number] 10/30/2019 12:36:00 PM EST [facility] [facility], PCName: Riccardo Schneider: 1985Provider: Janie Gao: 10/28/2019 Assessment Joint pain, hip (719.45) (M25.559) Left hip Plan Start: Meloxicam 15 MG Oral Tablet; TAKE 1 TABLET DAILY WITH FOOD Rx By: Lela Gao; Dispense: 0 Days ; #:30 Tablet; Refill: 1;For: Joint pain, hip; YOUNG = N; Verified Transmission to [facility] / [address]; Last Updated By: DalyNetPayment; 10/28/2019 1:17:47 PM X-Ray I Hip- Uni Pelvis - 2 or 3 views (XRays were ordered, obtained and interpretedtoday in the office. Indication: pain/dysfunction.); Status:Complete; Done: [id number] Perform:SOS14 (General); Due:[id number]; Last Updated By:Lisa Marroquin; 10/28/2019 12:59:27 PM;Ordered; For:Arthralgia of left hip; Ordered By:Lela Gao;Weight Bearing Status : Weight bearingLaterality: : LeftAssessment: Left hip pain. I saw this 34-year-old man two years ago. 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 He has basically put up with it, but it seems to be getting worse. He tried PT, he tried cortisone, and he did not want any anti-inflammatories. 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 On exam today, he clearly has an impinging left hip.X-rays ordered, taken and interpreted today of the pelvis and two views of the left hip show cam impingement but no significant progression from x-rays two years back. I reviewed his old MRI, confirming the findings as stated.Plan: He has three basic options1.Live with it and deal with it and have some medication and an injection.2.Do an arthroscopic femoral neck plasty with labral repair. I think this will put him out of his job for at least six weeks, probably up to three months. There is a 70% chance of success and 5% chance of being made worse.3.[place] on and just deal with it until he is ready for hip replacement or hip resurfacing. Because of his age, obviously these should be tried to be avoided if we can, but basically if he is at the end of his tether, his pain is miserable, and he cannot live with it, he is a candidate for this approach.At this point, he has elected to go for a cortisone injection, so we will set this up for the near future. Signatures Electronically signed by : Lesley Alfaro, ; Oct 29 2019 2:01PM EST Electronically signed by : Lela Gao M.D.; Oct 30 2019 12:35PM EST (Author) Name Value Range Interpretation Code Description Data Preeti rce(s) Supporting Document(s) ID Date Data Source [id number] 10/17/2019 09:59:00 AM [facility] Patient Name: RICCARDO CASTELLANOS OB: 1985 Sex: M Pt Unit #: [id number] Location:[facility] Provider: Visit Date/Time: 10/17/19 Primary Insurance: [facility] Secondary Insurance: Self Pay Intake Vital Signs 10/17/19 10:05 Current Height 6 ft 4.5 in Current Weight 92.533 kg BMI 24.5 BP 112/70 Blood Pressure Location Rt brachial Position Sitting Respiration 16 Pulse 69 Pulse Source Pulse Oximeter Pulse Oximetry (%) 96 Intake Visit Reasons: Annual Physical Nurse Note: Pt having hard time turning head to (L) side to look over his shoulder. Always had but never got checked. Pt has new baby coming next month and wants T-dap (whooping cough shot)?. Is patient in pain?: No Allergies No Known Drug Allergies Allergy (Unverified 10/17/19 10:07) Medications pravastatin 20 mg PO QDAY 90 days Fall Risk History of falls: No Ambulatory Aid:: None Gait/Transferring:: Normal Medications:: No High Risk Medications PHQ-2/9 Over the last 2 weeks, how often have you been bothered by any of the following problems? 1. Little interest or pleasure in doing things: not at all 2. Feeling down, depressed, or hopeless: not at all Total score: 0 HIV Testing Offer - ages 13-64 HIV testing Offer: Yes Requirement for HIV testing offer been met?: Declines today. Pretest education received and acknowledged SBIRT Annual Questionnaire Are you currently in recovery for alcohol or substance use?: No How many times in the past year have you had 5 or more drinks in a day?: 1 or more How many times in the past year have you used a recreational drug or used a prescription medication for nonmedical reasons?: None PFSH Surgical History (Updated 05/20/19 @ 11:51 by Sing Ting Delicious) History of - surgery Family History Mother Hypertension Father Diabetes pat GM Diabetes Sister No problems noted. Sister No problems noted. HPI Additional HPI HPI Details: Riccardo presents to the clinic for his annual PE. Labs ordered, but not completed, yet. He is having some left neck pain. Notes that this is chronic. Review of Systems Const All systems reviewed are unremarkable except as noted in HPI and below Reports as per HPI, Denies excessive sweating, Denies fatigue and Denies headache(s) Eyes Denies blurry vision, Denies change in vision, Denies dry eyes, Denies irritation, Denies itchy eyesand Denies loss of vision ENT Denies abnormal hearing, Denies dysphagia, Denies di zziness, Denies headache(s), Denies lip swelling, Denies nasal congestion, Denies nasal discharge, Denies disequilibrium, Denies sinus pain,Denies sore throat and Denies throat swelling Card Denies chest pain, Denies pedal edema, Denies lightheadedness, Denies palpitations and Denies dyspnea Resp Denies cough, Denies excessive phlegm production, Denies pain on inspiration, Denies dyspnea and Denies wheezing GI Denies abdominal pain, Denies change in bowel habits, Denies dysphagia, Denies early satiety, Deniesheartburn, Denies diarrhea, Denies nausea and Denies vomiting Musc Denies back pain, Denies arthralgias, Denies limited range of motion, Denies muscle cramps and Denies muscle weakness Details: Neck pain; chronic; does not recall injury. Left sided. Skin/Breast Denies breast pain, Denies change in pigmentation, Denies lesions, Denies nail changes, Denies rash and Denies unusual bruising Neuro Denies abnormal hearing, Denies dizziness, Denies headache(s), Denies loss of vision, Denies memory loss, Denies paresthesias and Denies disequilibrium Psych Denies abnormal sleep pattern, Denies anxiety, Denies change in appetite, Denies depression, Denies irritability and Denies memory loss Endo Denies excessive sweating, Denies fatigue and Denies palpitations Aller/Immun Denies urticaria, Denies itchy eyes, Denies lip swelling, Denies seasonal rhinorrhea, Denies throat swelling and Denies wheezing Exam Const General: cooperative, healthy appearing, no acute distress, well developed and well groomed Nutritional Appearance: well nourished Orientation: alert, awake and oriented x3 HENMT Head: normocephalic and atraumatic Ears: hearing grossly normal bilaterally, external ears normal and TM's normal bilaterally General nose exam: no nasal discharge Face and sinus: normal facial exam and sinuses nontender Mouth: oral mucosae normal, lip normal, tongue normal, oropharynx normal and moist mucous membranes Throat: posterior oropharynx normal Eyes General: appearance normal, both eyes and all related structures Eyelids: eyelids normal Conjunctivae: conjunctivae normal Sclera: sclerae normal Pupils: PERRL EOM: EOM intact bilaterally Neck Neck: normal visual inspection, full ROM, no lymphadenopathy and supple Neck mass: No Other: Cervical para-spinus tenderness of the left sided. No obvious swelling or deformity. Resp Effort Inspection: normal respiratory effort Auscultation: clear to auscultation bilaterally Cardio Rate: regular rate Rhythm: regular rhythm Heart Sounds: S1 normal and S2 normal Pulses: normal peripheral pulses GI Palpation: soft, no hepatosplenomegaly and nontender Auscultation: normal bowel sounds Musc Cervical Spine: normal cervical lordosis and cervical ROM normal Thoracic/Lumbar Spine: thoracic and lumbar spine normal to inspection and thoraco-lumbar ROM normal Skin Lesions: no lesions Rashes: no rashes Neuro General: alert, awake, oriented x3, gait normal and moves all extremities Cranial Nerves: CN's II-XII intact bilaterally Cognition: normal cognition Speech: speech normal Gait: normal gait Motor: muscle tone normal throughout and strength 5/5 throughout Sensory Exam: no sensory deficits noted Extrem General: normal to inspection, full ROM, capillary refill normal, no clubbing, cyanosis or edema andno muscle atrophy Psych Appearance: grossly normal and well kempt Mental Status: mental status grossly normal Speech and Movement: speech and movement normal Mood: congruent mood Affect: normal affect Attitude: cooperative Thought Process: normal Thought Content: normal Insight: insight good Judgment: judgment good Assessment Plan Assessment Plan (1) Encounter for annual health examination: Code(s): Z00.00 - Encounter for general adult medical examination without abnormal findings Plan - Dayna Gordon NP: Relatively healthy 34 year old male with hyperlipidemia. Some mild neck pain, likely related to overuse. Does not wish to do PT. I educate on ways to help including heat, stretching, etc. He is fairly non-compliant with his pravastatin, discussed this today. Labs ordered, need to be completed fasting. (2) Chronic neck pain: Current Visit: No Status: Acute Code(s): M54.2 - Cervicalgia; G89.29 - Other chronic pain SNOMED Code(s): 6365465718584 Category: Medical (3) Mixed hyperlipidemia: Current Visit: No Status: Acute Code(s): E78.2 - Mixed hyperlipidemia SNOMED Code(s): 770775104 Category: Medical Orders Other Medications: Changed: From: prav astatin 20 mg PO QDAY 30 tabs 1RF To: pravastatin 20 mg PO QDAY 90 days 90 tabs 3RF Discontinued: meloxicam Discontinued Reason: Patient Reported 15 mg PO DAILY 30 days 30 tabs 1RF cyclobenzaprine Discontinued Reason: Patient Reported 5 mg PO BID 10 days 20 tabs 0RF Electronically Signed By: <Electronically signed by Dayna Gordon NP> Date/Time Signed: 10/17/19 1032 Name Value Range Interpretation Code Description Data Preeti rce(s) Supporting Document(s) Procedure Social History Code Duration Value Status Description Data Source(s ) Smoking 11/18/2020 12:00:00 AM EST Never Smoker completed Never [facility] [place] Smoking 11/18/2020 12:00:00 AM EST Never Smoker completed Never [facility] ([facility]) 10/15/2020 12:55:49 PM EST Never smoker completed Never [facility] Smoking 10/15/2020 12:55:00 PM EST Never smoker completed Never [facility] 10/17/2019 10:04:59 AM EST Never smoker completed Never [facility] 10/17/2019 10:04:59 AM EST Never smoker completed Never [facility] Smoking 10/17/2019 10:04:00 AM EST Never smoker completed Never [facility] Smoking 10/17/2019 10:04:00 AM EST Never smoker completed Never [facility] 10/17/2019 10:04:00 AM EST Never smoker completed Never [facility] Smoking 10/17/2019 10:04:00 AM EST Never smoker completed Never [facility] Vital Signs ID Date Data Source UNK Name Value Range Interpretation Code Description Data Source(s) Diastolic blood pressure 68 mm[Hg] 68 mm[Hg] eCW1 ([facility]) Systolic blood pressure 122 mm[Hg] 122 mm[Hg] e CW1 ([facility]) Respiratory rate 18 /min 18 /min eCW1 ([facility]) Heart rate 76 /min 76 /min eCW1 ([facility]) Body mass index (BMI) [Ratio] 25.27 kg/m2 25.27 kg/m2 eCW1 ([facility]) Body height 75 [in_i] 75 [in_i] W1 ([facility]) Body weight 202.2 [lb_av] 202.2 [lb_av] eCW1 ([facility])
--- OUTSIDE RECORDS SUMMARY | 2020-12-09 08:51 | CCD | Continuity of Care Document ---
Author Author [facility] Address [address] [place] [address] Phone Support Name Relationship Address Phone Dayna Gordon PRS [address] [place] [address] Allergies, Adverse Reactions, Alerts Allergen Type Severity [...] Pravastatin Active 20 MG PO daily 90 May 31, 2020 7:22am Problems Active Problems Medical Problem Onset Date Status Left flank pain Active Inactive/Resolved Problems Medical Problem Onset Date Status Mixed hyperlipidemia R esolved Chronic neck pain Reso lved Procedures No procedure information available. Relevant Diagnostic Tests and/or Laboratory Data Laboratory Results Test Date/Time Result Interpretation Reference Range Result Comment Performing Site Blood Urea Nitrogen April 02, 2020 8:42am 18 mg/dL 08-18 [facility], [address] [place] [address] 53564 Blood Urea Nitrogen October 29 12:45pm 15 mg/dL 08-18 [facility], [address] [place] [address] 21079 Sodium Level April 02, 2020 8:42am 143 mmol/L 132-146 [facility], [address] [place] [address] 41366 Sodium Level October 29, 2019 12:45pm 140 mmol/L 132-146 [facility], [address] [place] [address] 81882 Potassium Level April 02, 2020 8:42am 4.1 mmol/L 3.5-5.5 [facility], [address] [place] [address] 07492 Potassium Level October 29, 2019 12:45pm 4.0 mmol/L 3.5-5.5 [facility], [address] [place] [address] 70795 Chloride Level April 02, 2020 8:42am 108 mmol/l 99-109 [facility], [address] [place] [address] 43750 Chloride Level October 29, 2019 12:45pm 107 mmol/l 99-109 [facility], [address] [place] [address] 20759 Carbon Dioxide Level April 02, 2020 8:42am 29 mmol/l 20-31 [facility], [address] [place] [address] 30608 Carbon Dioxide Level October 29 12:45pm 27 mmol/l 20-31 [facility], [address] [place] [address] 28004 Anion Gap April 02, 2020 8:42am 10 mmol/l -16 [facility], [address] [place] [address] 54680 Anion Gap October 29, 2019 12:45pm 10 mmol/l 8-16 [facility], [address] [place] [address] 79252 Glucose Level April 02, 2020 8:42am 91 mg/dL 74-106 [facility], [address] [place] [address] Glucose Level October 29, 2019 12:45pm 92 mg/dL 74-106 [facility], [address] [place] [address] 17694 Creatinine April 02, 2020 8:42am 1.0 mg/dL 0.5-1.1 [facility], [address] [place] [address] Creatinine October 29, 2019 12:45pm 1.0 mg/dL 0.5-1.1 [facility], [address] [place] [address] Glomerular Filtration Rate Calc April 02, 2020 8:42am Greater than 60 ml/min ABOVE 60 [facility], [address] [place] [address] Glomerular Filtration Rate Calc Dece 2018 12:45pm Greater than 60 ml/min ABOVE 60 [facility], [address] [place] [address] Alanine Aminotransferase (ALT/SGPT) April 02, 2020 8:42am 31 U/L 10-49 [facility], [address] [place] [address] Alanine Aminotransferase (ALT/SGPT) October 29, 2019 12:45pm 66 U/L 10-49 [facility], [address] [place] [address] 18531 Aspartate Amino Transf (AST/SGOT) Ma y 2019 8:42am 16 U/L 0-33 [facility], [address] [place] [address] 38499 Aspartate Amino Transf (AST/SGOT) Polober 2018 12:45pm 29 U/L 0-33 [facility], [address] [place] [address] 21133 Alkaline Phosphatase April 02, 2020 8:42am 98 U/L 45-129 [facility], [address] [place] [address] Alkaline Phosphatase October 29 12:45pm 98 U/L 45-129 [facility], [address] [place] [address] 48788 Calcium Level April 02, 2020 8:42am 8.9 mg/dL 8.5-10.1 [facility], [address] [place] [address] Calcium Level October 29, 2019 12:45pm 9.1 mg/dL 8.5-10.1 [facility], [address] [place] [address] 50329 Total Bilirubin April 02, 2020 8:42am 0.5 mg/dL 0.3-1.2 [facility], [address] [place], [place] [id number] Total Bilirubin October 29, 2019 12:45pm 0.6 mg/dL 0.3-1.2 [facility], [address] [place] [address] 90995 Albumin April 02, 2020 8:42am 4.2 g/dL 3.2-4.8 [facility], [address] [place], [place] [id number] Albumin October 29, 2019 12:45pm 4.2 g/dL 3.2-4.8 [facility], [address] [place], [place] [id number] Serum Total Protein April 02, 2020 8:42am 7.3 g/dL 5.7-8.2 [facility], [address] [place], [place] [id number] Serum Total Protein October 29 12:45pm 7.4 g/dL 5.7-8.2 [facility], [address] [place] [address] 74629 Triglycerides Level April 02, 2020 8:42am 68 mg/dL 0-150 [facility], [address] [place] [address] 40331 Triglycerides Level October 29 12:45pm 114 mg/dL 0-150 [facility], [address] [place] [address] 78483 Cholesterol Level April 02, 2020 8:42am 166 mg/dL 120-200 [facility], [address] [place] [address] 29642 Cholesterol Level October 29, 2019 12:45pm 269 mg/dL 120-200 [facility], [address] [place] [address] 61015 HDL Cholesterol April 02, 2020 8:42am 50 mg/dL HDL Less than 40 mg/dL: Major risk for CHDHDL Greater than 59 mg/dL: Low risk for CHD [facility], [address] [place] [address] 95756 HDL Cholesterol October 29, 2019 12:45pm 54 mg/dL HDL Less than 40 mg/dL: Major risk for CHDHDL Greater than 59 mg/dL: Low risk for CHD [facility], [address] [place] [address] 74603 LDL Cholesterol, Calculated April 02, 2020 8:42am 103 mg/dL 0-100 [facility], [address] [facility] [address] LDL Cholesterol, Calculated October 29, 2019 12:45pm 193 mg/dL 0-100 [facility], [address] [facility] [address] Health Concerns Health Concerns may be documented in an alternate section. Advance Directives Advance Directive Response Recorded Date/Time Advanced Directive No Sergio juan a 2019 9:30am Does Patient have a DNR? No October 15, 2020 12:55pm Healthcare Proxy No Philippe heather 2019 12:55pm Living Will No October 15, 2020 12:55pm Chief Complaint and Reason for Visit Chief Complaint Annual Physical Z00.00 E78.2 Hyperlipidemia Hyperlipidemia Encounters Encounter Location(s) Ar rival/Admit Date Discharge/Depart Date Provider(s) Departed Physician/Provider Office Visit [facility] October 17, 2019 9:57am October 17, 2019 10:28am Dayna Gordon Registered Referred [facility] October 29, 2019 12:40pm Dayna Gordon Registered Referred [facility] April 02, 2020 8:39am Dayna Gordon Departed Physician/Provider Office Visit [facility] April 02, 2020 8:55am April 02, 2020 9:19am Dayna Gordon Departed Physician/Provider Office Visit [facility] October 15, 2020 12:51pm October 15, 2020 1:17pm Dayna Gordon Assessments No Assessments Information Available Family History Relationship Condition A ge at [...] available Insurance Providers Guarantor RICCARDO CASTELLANOS Address [address] [place] [id number] Contact Info. Home Phone: Payer Policy Id Coverage Id Subscriber's Name Subscriber Id Effective Date Expiration Date [facility] [id number] RICCARDO CASTELLANOS [id number] Self Pay Self N/A [facility] [id number] RICCARDO CASTELLANOS [id number] Plan of Treatment Relatively healthy 34 year old male with hyperlipidemia. Some mild neck pain, likely related to overuse. Does not wish to do PT. I educ ate on ways to help including heat, stretching, etc. He is fairly non-compliant with his pravastatin, discussed this today. Labs ordered, need to be completed fasting. Future Tests Future scheduled test information is unavailable Pending Tests Pending diagnostic test information is unavailable Future Visits Future appointment information is unavailable Referrals to Other Providers Referral information is unavailable Future Procedures Future procedure information is unavailable Future Medications Future medication information is unavailable Patient Instructions Patient instructions are unavailable Social History Smoking Status Status Date of Observation Never smoker October 15, 2020 12: 55pm Observation Status Observation Response Mejia e of Response Smoking Status Never smoker October 15, 2020 12:55pm Assigned Sex Male Vital Signs Vital Reading Result Ref erence Range Collection Date/Time Height 76.5 [in_i] October 17, 2019 10:05am Weight 204.00 [lb_av] October 17, 2019 10:05am Heart Rate 69 /min 60-100 October 17, 2019 10:05am Respiratory rate 16 /min 12-October 17, 2019 10:05am Oxygen saturation by Pulse oximetry 96 % 95- 100 October 17, 2019 10:05am BP Systolic 112 mm[Hg] October 17, 2019 10:05am BP Diastolic 70 mm[Hg] October 17, 2019 10:05am BMI (Body Mass Index) 24.5 kg/m2 October 17, 2019 10:05am Height 76.5 [in_i] April 02, 2020 9:56am Weight 210.00 [lb_av] April 02, 2020 9:56am Body Temperature 97.9 [degF] 97.6-99.5 April 02, 2020 9:56am Heart Rate 80 /min 60-100 April 02, 2020 9:56am Respiratory rate 18 /min 12-April 02, 2020 9:56am Oxygen saturation by Pulse [...] 15, 2020 1:05pm Respiratory rate 18 /min 12-October 15, 2020 1:05pm Oxygen saturation by Pulse oximetry 96 % 95- 100 October 15, 2020 1:05pm BP Systolic 100 mm[Hg] October 15, 2020 1:05pm BP Diastolic 78 mm[Hg] October 15, 2020 1:05pm BMI (Body Mass Index) 24.3 kg/m2 October 15, 2020 1:05pm
[2020-12-09] MEDS ORDERED: propofoL 200 MG/20 ML VIAL As Ordered ONE (09:57)
[2020-12-09] MEDS ORDERED: LIDOCAINE 2% 100MG/5ML SDV (FOR ANES.) As Ordered ONE (09:57)
[2020-12-09] MEDS ORDERED: fentaNYL 100 MCG/2 ML INJECTION (J3010) As Ordered ONE (10:04)
[2020-12-09] MEDS ORDERED: MIDAZOLAM INJ 2MG/2ML VIAL (J2250 PER 1MG) As Ordered ONE (10:04)
[2020-12-09] MEDS ORDERED: FLOM0.4C39 PO (10:47)
[2020-12-09] MEDS ORDERED: OXYC1TAB23 PO (10:47)
--- NOTE | 2020-12-09 11:01 | ROOPDOC ---
[facility] Report Of Operation Report of Operation DATE OF PROCEDURE: 12/09/20 PREPROCEDURE DIAGNOSIS: Left kidney stone. POSTPROCEDURE DIAGNOSIS: Left kidney stone. PROCEDURE: Left extracorporeal shock wave lithotripsy. SURGEON: Dr. Hui Jean HOSPITAL SECURITY OFFICER: None. ANESTHESIA: Monitored anesthesia care (MAC). OPERATIVE INDICATIONS: This is a 35-year-old male who was found to have a 6-mm nonobstructing left kidney stone. He is brought to the operating room today for the above-listed procedure. DESCRIPTION OF PROCEDURE: The patient brought to the operating room, and MAC anesthesia was administered. Prophylactic antibiotics were infused. He was then placed in supine position in preparation for a left-sided extracorporeal shock wave lithotripsy. Fluoroscopy was utilized to monitor stone position and fragmentation during the procedure. Shock waves were then delivered to the left-sided kidney stone ungated. There were no arrhythmias. The stone did appear to fragment well. After 2500 shocks, the procedure was concluded. The patient was then awakened from anesthesia and transported to the recovery room in stable condition. ESTIMATED BLOOD LOSS: 0 mL. COMPLICATIONS: None. SPECIMENS: None. PLAN: The patient will followup in clinic in a few weeks with imaging prior to assess for residual stone burden. HUI JEAN MD Dec 09, 2020 10:46
[2020-12-09 12:45] VITALS: BP 127/82
--- NOTE | 2020-12-10 04:41 | REP ---
INDICATION: KUB PRIOR TO SDC COMPARISON: None. TECHNIQUE: Supine view of the abdomen and pelvis. FINDINGS: Left intrarenal calculi measuring up to approximately 4 mm. Further evaluation of the urinary tract system is limited due to bowel gas. No bowel obstruction. No again a megaly. Skeletal structures intact. Phleboliths noted in the pelvis. IMPRESSION: Small left intrarenal calculi. <Electronically signed by Guerrero Baez > 12/10/20 0434
== END 2020-12-09 12:45 | disposition home or self-care (01) ==
LOC: M SDC 08:29
PROVIDERS: ATTEND Urology
DX: N20.0 Calculus of kidney (principal)
CPT/HCPCS: 50590; 74018; J2250; J3010